=== PATIENT | female | born 2000 | race Caucasian/White ===

== ENCOUNTER 2018-01-11 19:04 | Emergency (ER) | payer BC ==
[2018-01-11 23:29] LABS: ADD MAN DIFF? NO
[2018-01-11 23:34] LABS: WHITE BLOOD COUNT 7.2 10^3/ul (4.8-10.8)
[2018-01-11 23:34] LABS: BASOPHIL # 0.1 10^3/ul (0.0-0.1); BASOPHILS % 0.7 % (0.0-2.0); EOSINOPHILS # 0.3 10^3/ul (0.0-0.5); HEMATOCRIT 33.9 % (37.0-47.0); HEMOGLOBIN 11.2 g/dl (12.0-16.0); LYMPHOCYTES # 3.2 10^3/ul (0.8-2.9); LYMPHOCYTES % 44.4 % (18.0-55.0); MEAN CORPUSCULAR HEMOGLOBIN 29.2 pg (29.0-33.0); MEAN CORPUSCULAR VOLUME 88.5 fl (72.0-104.0); MEAN PLATELET VOLUME 9.2 fl (7.4-10.4); MONOCYTE # 0.6 10^3/ul (0.3-0.9); MONOCYTES % 8.8 % (0.0-13.0); PLATELET COUNT 382 10^3/UL (140-415); RED BLOOD COUNT 3.83 10^6/ul (4.20-5.40)
[2018-01-11 23:59] LABS: D-DIMER 589.87 ng/ml (<460)
[2018-01-12 00:22] LABS: ALANINE AMINOTRANSFERASE 25 IU/L (13-69); ALBUMIN 4.3 g/dl (3.3-4.9); ALBUMIN/GLOBULIN RATIO 1.13; ALKALINE PHOSPHATASE 47 IU/L (42-121); ANION GAP 15 (8-16); ASPARTATE AMINO TRANSFERASE 18 IU/L (15-46); BLOOD UREA NITROGEN 7 mg/dl (7-20); CALCIUM 9.3 mg/dl (8.4-10.2); CARBON DIOXIDE 25 mmol/L (21-31); CHLORIDE 107 mmol/L (97-110); CREATININE 0.56 mg/dl (0.44-1.00); GLUCOSE 88 mg/dl (70-220); POTASSIUM 3.9 mmol/L (3.5-5.1); SODIUM 143 mmol/L (135-144); TOTAL PROTEIN 8.1 g/dl (6.1-8.1)
== END 2018-01-12 01:36 | disposition home or self-care (01) ==
LOC: FTE 01-12 01:36
DX: M79.1 Myalgia (principal); Z33.1 Pregnant state, incidental
CPT/HCPCS: 36415; 71045; 80053; 81025; 85025; 85378; 93970; 99285-25

== ENCOUNTER 2018-01-28 05:56 | Emergency (ER) | payer BC ==
[2018-01-28] MEDS: hydrOXYzine HCL 25 MG TAB PO (06:46)
== END 2018-01-28 07:15 | disposition home or self-care (01) ==
LOC: FTE 05:56
DX: F41.9 Anxiety disorder, unspecified (principal); R07.9 Chest pain, unspecified; Z32.02 Encounter for pregnancy test, result negative
CPT/HCPCS: 81025; 93005; 99283-25

== ENCOUNTER 2018-05-30 12:26 | Emergency (ER) | payer BC | END 2018-05-30 14:35 | disposition home or self-care (01) | LOC: FTE 14:35 | DX: R07.82 Intercostal pain (principal) | CPT/HCPCS: 71046; 93005; 93971; 99285-25 ==